=== PATIENT | female | born 1985 | race Two or more races ===

== ENCOUNTER 2020-01-06 11:39 | Emergency (ER) | payer MEDICAID ==
[~2020-01-06] VITALS: Ht 157.5 cm; Wt 44.0 kg
[2020-01-06 13:13] LABS: Urine WBC None Seen /hpf (0 - 5)
[2020-01-06 13:28] LABS: Urine Bacteria FEW /hpf (None Seen); Urine Blood Negative /uL (Negative); Urine Specific Gravity 1.013 (1.001-1.035)
[2020-01-06 13:40] LABS: Basophils # (auto) 0 uL; Basophils % (auto) 0.2 % (0.0-2.0); Eosinophils # (auto) 0 uL; Eosinophils % (auto) 0.3 % (0.0-7.0); Hematocrit 38.1 % (36.0-46.0); Hemoglobin 12.5 g/dL (12.2-16.2); Lymphocytes # (auto) 1.6 uL; Mean Corpuscular Hemoglobin 27.9 pg (28.0-32.0); Mean Corpuscular Hgb Conc. 32.9 g/dL (32.0-36.0); Mean Corpuscular Volume 84.8 fL (80.0-100.0); Monocytes # (auto) 0.5 uL; Neutrophils # (auto) 5.6 uL; Neutrophils % (auto) 72.5 % (37.0-80.0); Nucleated Red Blood Cells % 0.1 %; Platelet Count (auto) 357 10^3/uL (140-450); Red Blood Cells 4.49 10^6/uL (4.0-5.20); Red Cell Distribution Width 14.8 % (11.8-14.3); White Blood Cell 7.7 10^3/uL (4.4-10.8)
[2020-01-06 13:57] LABS: Albumin 4.1 g/dL (3.4-5.0); Calcium 9.1 mg/dL (8.5-10.1); Potassium 3.7 mmol/L (3.5-5.1)
[2020-01-06 14:01] LABS: Bilirubin, Total 0.3 mg/dL (0.2-1.0); Total Protein 8.3 g/dL (6.4-8.2)
[2020-01-06 17:03] VITALS: BP 100/55
== END 2020-01-06 17:06 | disposition home or self-care (01) ==
LOC: ER 11:39
DX: O26.891 Other specified pregnancy related conditions, first trimester (principal); R10.2 Pelvic and perineal pain; Z3A.00 Weeks of gestation of pregnancy not specified
CPT/HCPCS: 36415; 76801; 80053; 81001; 84702; 85025

== ENCOUNTER 2020-01-08 06:21 | Emergency (ER) | payer MEDICAID ==
[~2020-01-08] VITALS: Ht 160 cm; Wt 45.8 kg
[2020-01-08 09:25] LABS: Urine Amorphous Crystal FEW /hpf (None Seen); Urine Bacteria NONE SEEN /hpf (None Seen); Urine Blood Negative /uL (Negative); Urine Mucus FEW (None Seen); Urine Specific Gravity 1.019 (1.001-1.035); Urine WBC <1 /hpf (0 - 5)
[2020-01-08 09:31] LABS: Alcohol, Urine < 3.0 mg/dL (0-5); Amphetamine Screen, Urine NEGATIVE (NEGATIVE); Barbiturate Scree,Urine NEGATIVE (NEGATIVE); Benzodiazephine Screen, Urine NEGATIVE (NEGATIVE); Cannabinoid Screen, Urine NEGATIVE (NEGATIVE); Cocaine Screen, Urine NEGATIVE (NEGATIVE); Opiate Scree,Urine NEGATIVE (NEGATIVE); Phencyclidine Screen, Urine NEGATIVE (NEGATIVE)
[2020-01-08 10:20] VITALS: BP 95/52
== END 2020-01-08 10:30 | disposition home or self-care (01) ==
LOC: ER 06:21
DX: O26.891 Other specified pregnancy related conditions, first trimester (principal); R10.9 Unspecified abdominal pain; Z3A.01 Less than 8 weeks gestation of pregnancy
CPT/HCPCS: 36415; 80307; 81001; 84702

== ENCOUNTER 2020-01-14 19:01 | Emergency (ER) | payer MEDICAID ==
[~2020-01-14] VITALS: Ht 157.5 cm; Wt 44.5 kg
[2020-01-14 21:01] LABS: Urine WBC None Seen /hpf (0 - 5)
[2020-01-14 21:12] LABS: Urine Amorphous Crystal FEW /hpf (None Seen); Urine Bacteria NONE SEEN /hpf (None Seen); Urine Blood Negative /uL (Negative); Urine Specific Gravity 1.022 (1.001-1.035)
[2020-01-14 22:15] LABS: Basophils # (auto) 0 10 ^3/uL (0-0.2); Basophils % (auto) 0.1 % (0.0-2.0); Eosinophils # (auto) 0.1 10 ^3/uL (0-0.8); Eosinophils % (auto) 0.6 % (0.0-7.0); Hematocrit 35.3 % (36.0-46.0); Hemoglobin 11.9 g/dL (12.2-16.2); Lymphocytes # (auto) 2.4 10 ^3/uL (0.4-5.4); Lymphocytes % (auto) 24.6 % (10.0-50.0); Mean Corpuscular Hemoglobin 28.7 pg (28.0-32.0); Mean Corpuscular Hgb Conc. 33.8 g/dL (32.0-36.0); Mean Corpuscular Volume 85.1 fL (80.0-100.0); Monocytes # (auto) 0.7 10 ^3/uL (0-1.3); Monocytes % (auto) 7.5 % (0.0-12.0); Neutrophils # (auto) 6.4 10 ^3/uL (1.6-8.6); Neutrophils % (auto) 67.2 % (37.0-80.0); Platelet Count (auto) 330 10^3/uL (140-450); Red Blood Cells 4.15 10^6/uL (4.0-5.20); Red Cell Distribution Width 15.2 % (11.8-14.3); White Blood Cell 9.6 10^3/uL (4.4-10.8)
[2020-01-14 22:20] LABS: BUN/Creatinine Ratio 11.9; Calcium 8.9 mg/dL (8.5-10.1); Potassium 3.4 mmol/L (3.5-5.1)
[2020-01-14 22:22] LABS: Bilirubin, Total 0.3 mg/dL (0.2-1.0); Total Protein 8.1 g/dL (6.4-8.2)
[2020-01-15 00:19] VITALS: BP 96/64
[2020-01-15] MEDS ORDERED: cefTRIAXone SODIUM 250 MG VL IM ONE (00:45)
[2020-01-15] MEDS ORDERED: AZITHROMYCIN 250 MG TAB PO ONE ×2 (00:45→00:57)
== END 2020-01-15 01:00 | disposition home or self-care (01) ==
LOC: ER 19:01
DX: N76.0 Acute vaginitis (principal)
CPT/HCPCS: 36415; 80053; 81001; 84702; 85025; 96372; 99283; J0696

== ENCOUNTER 2020-01-22 08:21 | Emergency (ER) | payer MEDICAID ==
[~2020-01-22] VITALS: Ht 160 cm; Wt 44.9 kg
[2020-01-22 11:13] VITALS: BP 109/82
== END 2020-01-22 12:30 | disposition home or self-care (01) ==
LOC: ER 08:25
DX: O23.41 Unspecified infection of urinary tract in pregnancy, first trimester (principal); Z3A.08 8 weeks gestation of pregnancy
CPT/HCPCS: 36415; 76801; 81002; 81025; 84702

== ENCOUNTER 2020-02-04 08:10 | Emergency (ER) | payer MEDICAID ==
[~2020-02-04] VITALS: Ht 160 cm; Wt 44.5 kg
[2020-02-04 08:36] VITALS: BP 112/64
== END 2020-02-04 11:42 | disposition home or self-care (01) ==
LOC: ER 08:10
DX: O26.891 Other specified pregnancy related conditions, first trimester (principal); R10.9 Unspecified abdominal pain; R51 Headache; Z3A.10 10 weeks gestation of pregnancy
CPT/HCPCS: 36415; 76801; 84702

== ENCOUNTER 2020-05-01 08:00 | Observation (INO) | payer MEDICAID ==
[2020-05-01] MEDS ORDERED: PREN-96 PO (08:42)
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
== END 2020-05-01 11:05 | disposition home or self-care (01) | DRG 563 ==
LOC: LDRP 08:00
PROVIDERS: ADMIT Specialist; ATTEND Specialist
DX: O60.02 Preterm labor without delivery, second trimester (principal); O99.89 Other specified diseases and conditions complicating pregnancy, childbirth and the puerperium; E86.0 Dehydration; Z3A.22 22 weeks gestation of pregnancy
CPT/HCPCS: 59025; 81002; G0378

== ENCOUNTER 2020-05-08 10:57 | Observation (INO) | payer MEDICAID ==
[~2020-05-08] VITALS: Ht 157.5 cm; Wt 46.7 kg
[~2020-05-08 10:57] MED LIST: PREN-96 PO
[2020-05-08] MEDS ORDERED: ceFAZolin 1GM/50ML 50 ML IV ONE ×2 (13:45→14:10)
[2020-05-08] MEDS ORDERED: BETAMETHASONE ACET (6MG/ML) 5ML VIAL IM ONE (13:45)
[2020-05-08 13:54] LABS: Basophils # (auto) 0 10 ^3/uL (0-0.2); Basophils % (auto) 0.1 % (0.0-2.0); Eosinophils # (auto) 0 10 ^3/uL (0-0.8); Eosinophils % (auto) 0.5 % (0.0-7.0); Hematocrit 33.6 % (36.0-46.0); Hemoglobin 11.3 g/dL (12.2-16.2); Lymphocytes # (auto) 1.5 10 ^3/uL (0.4-5.4); Lymphocytes % (auto) 17.8 % (10.0-50.0); Mean Corpuscular Hemoglobin 29.7 pg (28.0-32.0); Mean Corpuscular Hgb Conc. 33.7 g/dL (32.0-36.0); Monocytes # (auto) 0.4 10 ^3/uL (0-1.3); Monocytes % (auto) 4.4 % (0.0-12.0); Neutrophils # (auto) 6.6 10 ^3/uL (1.6-8.6); Neutrophils % (auto) 77.2 % (37.0-80.0); Platelet Count (auto) 292 10^3/uL (140-450); Red Blood Cells 3.81 10^6/uL (4.0-5.20); Red Cell Distribution Width 13.8 % (11.8-14.3); White Blood Cell 8.5 10^3/uL (4.4-10.8)
[2020-05-08 14:09] LABS: INR 0.94 (0.9-1.15); Partial Thromboplastin Time 26.6 sec (23.64-32.05)
[2020-05-08] MEDS ORDERED: BETAMETHASONE ACET (6MG/ML) 5ML VIAL ONE (14:10)
[2020-05-08 14:29] LABS: Albumin 2.8 g/dL (3.4-5.0); Calcium 8.5 mg/dL (8.5-10.1); Potassium 4.1 mmol/L (3.5-5.1)
[2020-05-08 14:38] LABS: BUN/Creatinine Ratio 5.3; Bilirubin, Total 0.4 mg/dL (0.2-1.0); Total Protein 6.5 g/dL (6.4-8.2)
[2020-05-08 15:04] LABS: Amphetamine Screen, Urine NEGATIVE (NEGATIVE); Barbiturate Scree,Urine NEGATIVE (NEGATIVE); Benzodiazephine Screen, Urine NEGATIVE (NEGATIVE); Cannabinoid Screen, Urine NEGATIVE (NEGATIVE); Cocaine Screen, Urine NEGATIVE (NEGATIVE); Opiate Scree,Urine NEGATIVE (NEGATIVE); Phencyclidine Screen, Urine NEGATIVE (NEGATIVE)
[2020-05-08] MEDS ORDERED: LACTATED RINGER'S 1,000 ML IV SCH (15:08)
[2020-05-08 15:09] LABS: Urine Amorphous Crystal FEW /hpf (None Seen); Urine Bacteria NONE SEEN /hpf (None Seen); Urine Blood Negative /uL (Negative); Urine Mucus FEW (None Seen); Urine WBC <1 /hpf (0 - 5)
[2020-05-08] MEDS ORDERED: MAGNESIUM SULFATE 40MG/ML 1,000 ML IV SCH (15:25)
[2020-05-08] MEDS ORDERED: MAGNESIUM SULFATE 100 ML IV ONE (15:30)
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
== END 2020-05-08 17:28 | disposition short-term general hospital (02) | DRG 563 ==
LOC: LDRP 10:57
PROVIDERS: ADMIT Specialist; ATTEND Specialist
DX: O60.03 Preterm labor without delivery, third trimester (principal); O42.912 Preterm premature rupture of membranes, unspecified as to length of time between rupture and onset of labor, second trimester; Z3A.23 23 weeks gestation of pregnancy
CPT/HCPCS: 36415; 59025; 76805; 76815; 80053; 80307; 81001; 81002; 84112; 85025; 85610; 85730; 96365; 96366; 96367; 96372; G0378; J0690; J0702; J3475; Q0114

== ENCOUNTER 2020-05-15 17:43 | Observation (INO) | payer MEDICAID ==
[~2020-05-15] VITALS: Ht 160 cm; Wt 46.7 kg
== END 2020-05-15 19:40 | disposition home or self-care (01) | DRG 566 ==
LOC: LDRP 17:43
PROVIDERS: ADMIT Specialist; ATTEND Specialist
DX: O26.892 Other specified pregnancy related conditions, second trimester (principal); Z3A.24 24 weeks gestation of pregnancy; V49.9XXA Car occupant (driver) (passenger) injured in unspecified traffic accident, initial encounter; Y93.89 Activity, other specified; Y92.89 Other specified places as the place of occurrence of the external cause; Y99.8 Other external cause status
CPT/HCPCS: 59025; 81002; G0378

== ENCOUNTER 2020-05-16 23:00 | Observation (INO) | payer MEDICAID ==
[2020-05-17 02:23] LABS: Urine WBC None Seen /hpf (0 - 5)
[2020-05-17 02:40] LABS: Urine Bacteria NONE SEEN /hpf (None Seen); Urine Blood Negative /uL (Negative); Urine Specific Gravity 1.002 (1.001-1.035)
[2020-05-17 02:52] LABS: Alcohol, Urine < 3.0 mg/dL (0-10); Amphetamine Screen, Urine NEGATIVE (NEGATIVE); Barbiturate Scree,Urine NEGATIVE (NEGATIVE); Benzodiazephine Screen, Urine NEGATIVE (NEGATIVE); Cannabinoid Screen, Urine NEGATIVE (NEGATIVE); Cocaine Screen, Urine NEGATIVE (NEGATIVE); Opiate Scree,Urine NEGATIVE (NEGATIVE); Phencyclidine Screen, Urine NEGATIVE (NEGATIVE)
== END 2020-05-17 02:16 | disposition home or self-care (01) | DRG 566 ==
LOC: LDRP 23:00 → UNDOADMOB 23:00
PROVIDERS: ADMIT Specialist; ATTEND Specialist
DX: O26.892 Other specified pregnancy related conditions, second trimester (principal); Z3A.24 24 weeks gestation of pregnancy
CPT/HCPCS: 59025; 80307; 81001; 81002; G0378

== ENCOUNTER 2020-05-20 16:35 | Observation (INO) | payer MEDICAID ==
[~2020-05-20] VITALS: Ht 160 cm; Wt 46.7 kg
[2020-05-20 17:28] LABS: Alcohol, Urine < 3.0 mg/dL (0-10); Amphetamine Screen, Urine NEGATIVE (NEGATIVE); Barbiturate Scree,Urine NEGATIVE (NEGATIVE); Benzodiazephine Screen, Urine NEGATIVE (NEGATIVE); Cannabinoid Screen, Urine NEGATIVE (NEGATIVE); Cocaine Screen, Urine NEGATIVE (NEGATIVE); Opiate Scree,Urine NEGATIVE (NEGATIVE); Phencyclidine Screen, Urine NEGATIVE (NEGATIVE)
[2020-05-20] MEDS ORDERED: TERBUTALINE SULFATE 1 MG/ML 1ML VIAL SC SCH (18:15)
[2020-05-20] MEDS ORDERED: LACTATED RINGER'S 1,000 ML IV ONE (18:15)
--- NOTE | 2020-05-20 18:45 | NUR ---
Patient denies current thoughts of suicide. Addendum: 05/20/20 at 2000 by SABAS HUTTON RN Amended: Links added.
== END 2020-05-20 19:38 | disposition home or self-care (01) | DRG 566 ==
LOC: LDRP 16:35
PROVIDERS: ADMIT Obstetrics & Gynecology; ATTEND Obstetrics & Gynecology
DX: O62.9 Abnormality of forces of labor, unspecified (principal); O36.8120 Decreased fetal movements, second trimester, not applicable or unspecified; Z3A.25 25 weeks gestation of pregnancy
CPT/HCPCS: 59025; 80307; 81002; 96360; 96372; G0378; J3105

== ENCOUNTER 2020-06-20 07:33 | Observation (INO) | payer MEDICAID | END 2020-06-20 08:37 | disposition home or self-care (01) | DRG 566 | LOC: LDRP 07:33 | PROVIDERS: ADMIT Specialist; ATTEND Specialist | DX: O36.8130 Decreased fetal movements, third trimester, not applicable or unspecified (principal); O26.853 Spotting complicating pregnancy, third trimester; Z3A.29 29 weeks gestation of pregnancy | CPT/HCPCS: 59025; 81002; G0378 ==

== ENCOUNTER 2020-06-23 16:40 | Observation (INO) | payer MEDICAID | END 2020-06-23 19:05 | disposition home or self-care (01) | DRG 566 | LOC: LDRP 16:40 | PROVIDERS: ADMIT Specialist; ATTEND Specialist | DX: O36.8130 Decreased fetal movements, third trimester, not applicable or unspecified (principal); O26.893 Other specified pregnancy related conditions, third trimester; R10.30 Lower abdominal pain, unspecified; O99.343 Other mental disorders complicating pregnancy, third trimester; F32.9 Major depressive disorder, single episode, unspecified; Z3A.30 30 weeks gestation of pregnancy | CPT/HCPCS: 59025; 76817; 76818; 81002; G0378 ==

== ENCOUNTER 2020-06-25 10:39 | Observation (INO) | payer MEDICAID | END 2020-06-25 13:18 | disposition home or self-care (01) | LOC: LDRP 10:39 | PROVIDERS: ADMIT Specialist; ATTEND Specialist | DX: Z03.818 Encounter for observation for suspected exposure to other biological agents ruled out (principal); O26.893 Other specified pregnancy related conditions, third trimester; R10.30 Lower abdominal pain, unspecified; O36.8330 Maternal care for abnormalities of the fetal heart rate or rhythm, third trimester, not applicable or unspecified; O99.343 Other mental disorders complicating pregnancy, third trimester; F32.9 Major depressive disorder, single episode, unspecified; Z87.891 Personal history of nicotine dependence; Z3A.30 30 weeks gestation of pregnancy | CPT/HCPCS: 36415; 59025; 76815; 81002; 87426; G0378 ==

== ENCOUNTER 2020-07-04 12:27 | Observation (INO) | payer MEDICAID | END 2020-07-04 13:35 | disposition home or self-care (01) | LOC: LDRP 12:27 | PROVIDERS: ADMIT Obstetrics & Gynecology; ATTEND Obstetrics & Gynecology | DX: O36.8130 Decreased fetal movements, third trimester, not applicable or unspecified (principal); Z3A.31 31 weeks gestation of pregnancy | CPT/HCPCS: 59025; 81002; G0378 ==

== ENCOUNTER 2020-07-08 03:32 | Observation (INO) | payer MEDICAID | END 2020-07-08 04:18 | disposition home or self-care (01) | LOC: LDRP 03:32 | PROVIDERS: ADMIT Specialist; ATTEND Specialist | DX: O36.8130 Decreased fetal movements, third trimester, not applicable or unspecified (principal); Z3A.32 32 weeks gestation of pregnancy | CPT/HCPCS: 59025; 81002; G0378 ==

== ENCOUNTER 2020-07-09 11:22 | Emergency (ER) | payer MEDICAID ==
[~2020-07-09] VITALS: Ht 160 cm; Wt 51.7 kg
[2020-07-09] MEDS ORDERED: BACITRACIN TOP OINT 1 UD PKG TOP ONE (12:00)
[2020-07-09 15:06] LABS: Acetaminophen < 2.0 ug/mL (10-30); Salicylate < 1.7 mg/dL (2.8-20.0)
[2020-07-09 15:07] LABS: Alcohol, Urine < 3.0 mg/dL (0-10); Amphetamine Screen, Urine NEGATIVE (NEGATIVE); Barbiturate Scree,Urine NEGATIVE (NEGATIVE); Benzodiazephine Screen, Urine NEGATIVE (NEGATIVE); Cannabinoid Screen, Urine NEGATIVE (NEGATIVE); Cocaine Screen, Urine NEGATIVE (NEGATIVE); Opiate Scree,Urine NEGATIVE (NEGATIVE); Phencyclidine Screen, Urine NEGATIVE (NEGATIVE)
[2020-07-09] MEDS ORDERED: PENICILLIN G POT 5MIL/D5 50ML 50 ML IV ONE (22:30)
[2020-07-10] MEDS ORDERED: PENICILLIN G POTASSIUM 2,500,000 UNITS in D5W 5% 50 ML IV SCH (02:30)
[2020-07-10] MEDS ORDERED: BACITRACIN TOP OINT 1 UD PKG TOP ONE (15:37)
[2020-07-10 17:00] LABS: Urine Bacteria FEW /hpf (None Seen); Urine Blood Negative /uL (Negative); Urine Mucus FEW (None Seen); Urine WBC 98 /hpf (0 - 5)
[2020-07-10] MEDS ORDERED: NITROFURANTOIN 100 mg CAP PO ONE (18:00)
[2020-07-11] MEDS ORDERED: BACITRACIN TOP OINT 1 UD PKG TOP ONE (08:00)
[2020-07-12] MEDS ORDERED: BACITRACIN TOP OINT 1 UD PKG TOP ONE (04:27)
[2020-07-13] MEDS ORDERED: HALOPERIDOL LACTATE 5 MG/ML INJ VIAL IM PRN (15:30)
[2020-07-13] MEDS ORDERED: LORazepam 2MG/ML-1ML VIAL IM PRN (15:30)
[2020-07-13] MEDS ORDERED: diphenhdrAMINE HCL 25 MG CAP PO ONE (22:13)
[2020-07-13] MEDS ORDERED: lamoTRIgine 25 MG TAB ONE (22:14)
[2020-07-13] MEDS: diphenhdrAMINE HCL 25 MG CAP PO SCH (22:16)
[2020-07-13] MEDS: lamoTRIgine 25 MG TAB PO SCH (22:16)
[2020-07-14] MEDS ORDERED: diphenhdrAMINE HCL 25 MG CAP PO ONE (07:00)
[2020-07-14] MEDS: diphenhdrAMINE HCL 25 MG CAP PO SCH ×3 (07:04→22:55)
[2020-07-14] MEDS ORDERED: VENLAFAXINE HCL 37.5mg XR cap PO ONE (10:20)
[2020-07-14] MEDS: VENLAFAXINE HCL 37.5mg XR cap PO SCH (10:24)
[2020-07-14] MEDS ORDERED: CIPROFLOXACIN HCL 500 MG TAB PO ONE (16:11)
[2020-07-14] MEDS ORDERED: CEPHALEXIN 250 MG CAP PO ONE ×2 (16:13→16:30)
[2020-07-14] MEDS: CEPHALEXIN 250 MG CAP PO SCH (17:00)
[2020-07-14] MEDS ORDERED: BETAMETHASONE ACET (6MG/ML) 5ML VIAL IM ONE (18:15)
[2020-07-14] MEDS: TERBUTALINE SULFATE 1 MG/ML 1ML VIAL SC SCH ×3 (18:35→20:05)
[2020-07-14] MEDS ORDERED: LACTATED RINGER'S 1,000 ML IV ONE (19:30)
[2020-07-14] MEDS ORDERED: NIFEdipine 10 MG CAP PO ONE (21:15)
[2020-07-14 22:37] LABS: Urine WBC None Seen /hpf (0 - 5)
[2020-07-14] MEDS: lamoTRIgine 25 MG TAB PO SCH (22:55)
[2020-07-14 23:00] LABS: Urine Bacteria FEW /hpf (None Seen); Urine Blood Negative /uL (Negative); Urine Mucus FEW (None Seen); Urine Specific Gravity 1.021 (1.001-1.035)
[2020-07-15] MEDS: NIFEdipine 10 MG CAP PO SCH ×6 (02:46→22:40)
[2020-07-15] MEDS: diphenhdrAMINE HCL 25 MG CAP PO SCH ×3 (06:11→22:40)
[2020-07-15] MEDS: CEPHALEXIN 250 MG CAP PO SCH (10:00)
[2020-07-15] MEDS ORDERED: CEPHALEXIN 250 MG CAP PO SCH (10:00)
[2020-07-15] MEDS: VENLAFAXINE HCL 37.5mg XR cap PO SCH (10:00)
[2020-07-15] MEDS: BETAMETHASONE ACET (6MG/ML) 5ML VIAL IM ONE (22:34)
[2020-07-15] MEDS: lamoTRIgine 25 MG TAB PO SCH (22:40)
[2020-07-16] MEDS: BETAMETHASONE ACET (6MG/ML) 5ML VIAL IM ONE (01:15)
[2020-07-16] MEDS: NIFEdipine 10 MG CAP PO SCH ×8 (02:27→22:45)
[2020-07-16] MEDS: diphenhdrAMINE HCL 25 MG CAP PO SCH ×3 (06:19→22:41)
[2020-07-16] MEDS: CEPHALEXIN 250 MG CAP PO SCH (10:40)
[2020-07-16] MEDS: VENLAFAXINE HCL 37.5mg XR cap PO SCH (10:40)
[2020-07-16] MEDS: lamoTRIgine 25 MG TAB PO SCH (22:41)
[2020-07-17] MEDS: diphenhdrAMINE HCL 25 MG CAP PO SCH ×3 (05:03→23:36)
[2020-07-17] MEDS: NIFEdipine 10 MG CAP PO SCH ×5 (05:04→23:36)
[2020-07-17] MEDS: VENLAFAXINE HCL 37.5mg XR cap PO SCH (10:20)
[2020-07-17] MEDS: CEPHALEXIN 250 MG CAP PO SCH (10:20)
[2020-07-17] MEDS: lamoTRIgine 25 MG TAB PO SCH (23:36)
[2020-07-18] MEDS: NIFEdipine 10 MG CAP PO SCH ×6 (02:06→22:00)
[2020-07-18] MEDS: diphenhdrAMINE HCL 25 MG CAP PO SCH ×3 (06:09→22:46)
[2020-07-18] MEDS: CEPHALEXIN 250 MG CAP PO SCH (11:43)
[2020-07-18] MEDS: VENLAFAXINE HCL 37.5mg XR cap PO SCH (11:43)
[2020-07-18] MEDS: lamoTRIgine 25 MG TAB PO SCH (22:46)
[2020-07-19] MEDS: NIFEdipine 10 MG CAP PO SCH ×4 (02:00→14:00)
[2020-07-19] MEDS: diphenhdrAMINE HCL 25 MG CAP PO SCH ×3 (06:00→23:11)
[2020-07-19] MEDS: VENLAFAXINE HCL 37.5mg XR cap PO SCH (11:06)
[2020-07-19] MEDS: CEPHALEXIN 250 MG CAP PO SCH (11:06)
[2020-07-19] MEDS: lamoTRIgine 25 MG TAB PO SCH (23:11)
[2020-07-20] MEDS ORDERED: LACTATED RINGER'S 1,000 ML IV ONE (03:00)
[2020-07-20] MEDS: diphenhdrAMINE HCL 25 MG CAP PO SCH (06:18)
[2020-07-20 08:34] VITALS: BP 104/54
== END 2020-07-20 09:01 | disposition short-term general hospital (02) ==
LOC: EDBD 11:22 → EDUNIT# 11:22 → ER 11:22
DX: O9A.213 Injury, poisoning and certain other consequences of external causes complicating pregnancy, third trimester (principal); S61.512A Laceration without foreign body of left wrist, initial encounter; O99.343 Other mental disorders complicating pregnancy, third trimester; R45.851 Suicidal ideations; F41.9 Anxiety disorder, unspecified; F31.9 Bipolar disorder, unspecified; Z3A.33 33 weeks gestation of pregnancy; Z20.828 Contact with and (suspected) exposure to other viral communicable diseases; X78.8XXA Intentional self-harm by other sharp object, initial encounter; Y93.89 Activity, other specified; Y92.89 Other specified places as the place of occurrence of the external cause; Y99.8 Other external cause status
CPT/HCPCS: 36415; 76815; 76817; 76818; 80307; 80320; 80329; 81001; 87426; 96360; 96361; 96372; 99285; J0702; J2540

== ENCOUNTER 2020-08-08 16:45 | Inpatient (IN) | payer MEDICAID ==
[~2020-08-08] VITALS: Ht 160 cm; Wt 51.7 kg
[2020-08-08] MEDS ORDERED: FERR-20 PO (17:32)
[2020-08-08] MEDS ORDERED: SERT100T PO (17:32)
[2020-08-08] MEDS ORDERED: TRAZ300T16 PO (17:32)
[2020-08-08] MEDS ORDERED: HAL5T PO (17:32)
[2020-08-08] MEDS ORDERED: DIPH25CA66 PO (17:32)
[2020-08-08] MEDS ORDERED: DERMOPLAST 60ML BOTTLE TOP PRN (19:00)
[2020-08-08] MEDS ORDERED: PHISODERM TOP SOLN 240ML BTL TOP PRN (19:00)
[2020-08-08] MEDS ORDERED: LACTATED RINGER'S 1,000 ML IV SCH (19:00)
[2020-08-08] MEDS ORDERED: PENICILLIN G POT 5MIL/D5 50ML 50 ML IV ONE (19:00)
[2020-08-08] MEDS ORDERED: WITCH HAZEL-GLYCERIN PAD TOP PRN (19:00)
[2020-08-08] MEDS: LACTATED RINGER'S 1,000 ML IV SCH (19:00)
[2020-08-08] MEDS ORDERED: NALBUPHINE HCL 10 MG/1ml INJECTION IM PRN (19:00)
[2020-08-08] MEDS ORDERED: LIDOCAINE 2%HCL (LOCAL ANESTH.) INJ 20ML MDV IJ ONE (19:00)
[2020-08-08 19:51] LABS: Basophils # (auto) 0 10 ^3/uL (0-0.2); Basophils % (auto) 0.2 % (0.0-2.0); Eosinophils # (auto) 0 10 ^3/uL (0-0.8); Eosinophils % (auto) 0.4 % (0.0-7.0); Hematocrit 36.9 % (36.0-46.0); Hemoglobin 12.3 g/dL (12.2-16.2); Lymphocytes # (auto) 1.7 10 ^3/uL (0.4-5.4); Lymphocytes % (auto) 14.7 % (10.0-50.0); Mean Corpuscular Hemoglobin 29.7 pg (28.0-32.0); Mean Corpuscular Hgb Conc. 33.4 g/dL (32.0-36.0); Mean Corpuscular Volume 88.9 fL (80.0-100.0); Monocytes # (auto) 0.7 10 ^3/uL (0-1.3); Monocytes % (auto) 5.7 % (0.0-12.0); Neutrophils # (auto) 9.2 10 ^3/uL (1.6-8.6); Nucleated Red Blood Cells % 0.1 %; Platelet Count (auto) 229 10^3/uL (140-450); Red Blood Cells 4.15 10^6/uL (4.0-5.20); Red Cell Distribution Width 14.3 % (11.8-14.3); White Blood Cell 11.7 10^3/uL (4.4-10.8)
[2020-08-08 20:08] LABS: Albumin 2.9 g/dL (3.4-5.0); Calcium 8.7 mg/dL (8.5-10.1); Potassium 3.7 mmol/L (3.5-5.1)
[2020-08-08 20:11] LABS: BUN/Creatinine Ratio 15.4; Bilirubin, Total 0.2 mg/dL (0.2-1.0); Total Protein 6.9 g/dL (6.4-8.2)
[2020-08-08] MEDS ORDERED: LIDOCAINE 1% (LOCAL ANESTH.) PF 5ml SDV IJ ONE (20:45)
[2020-08-08] MEDS ORDERED: LACT. RINGERS/OXYTOCIN 20UNITS 1,000 ML IV ONE (20:45)
[2020-08-08] MEDS ORDERED: LACT. RINGERS/OXYTOCIN 20UNITS 1,000 ML IV SCH (20:45)
[2020-08-08 20:58] LABS: Amphetamine Screen, Urine NEGATIVE (NEGATIVE); Barbiturate Scree,Urine NEGATIVE (NEGATIVE); Benzodiazephine Screen, Urine NEGATIVE (NEGATIVE); Cannabinoid Screen, Urine NEGATIVE (NEGATIVE); Cocaine Screen, Urine NEGATIVE (NEGATIVE); Opiate Scree,Urine NEGATIVE (NEGATIVE); Phencyclidine Screen, Urine NEGATIVE (NEGATIVE)
[2020-08-08 21:08] LABS: Urine Bacteria FEW /hpf (None Seen); Urine Blood 3+ /uL (Negative); Urine Mucus FEW (None Seen); Urine Specific Gravity 1.012 (1.001-1.035); Urine WBC 12 /hpf (0 - 5)
[2020-08-08 21:13] LABS: INR 0.88 (0.9-1.15); Partial Thromboplastin Time 27.6 sec (23.0-31.2)
[2020-08-08] MEDS ORDERED: LIDOCAINE 2%HCL (LOCAL ANESTH.) INJ 20ML MDV ID ONE (21:30)
[2020-08-08] MEDS ORDERED: traZODone HCL 50 MG TAB PO PRN (22:15)
[2020-08-08] MEDS ORDERED: diphenhdrAMINE HCL 25 MG CAP PO PRN (22:15)
--- NOTE | 2020-08-08 23:30 | NUR ---
CPS report done, reference # [id number], CPS worker Faustina Claire, Union Organizer Sharda Merlos. Social Service consult placed.
[2020-08-08 23:36] VITALS: BP 111/59
[2020-08-09] MEDS ORDERED: PENICILLIN G POTASSIUM 2,500,000 UNITS in D5W 5% 50 ML IV SCH ×2
[2020-08-09] MEDS: traZODone HCL 50 MG TAB PO PRN ×2 (02:26→19:50)
[2020-08-09 03:00] VITALS: BP 102/55
[2020-08-09] MEDS: LACTATED RINGER'S 1,000 ML IV SCH (04:45)
[2020-08-09 06:50] VITALS: BP 115/62
--- NOTE | 2020-08-09 07:00 | NUR ---
Infant Feeding Education: Patient is currently bottle feeding per her request, and d/t possible drug interactions with patient medications; Formula provided and instruction on formula preparation from the New Beginning booklet reviewed with patient.
--- NOTE | 2020-08-09 08:00 | NUR ---
CFS visit: Ansley Flynn from [facility] on unit and has interviewed patient; Ansley states that she will return later today with a warrant to remove infant from patient custody; Ansley states that the infant may remain with mother for the time being.
[2020-08-09] MEDS: HALOPERIDOL 5 MG TAB PO SCH ×2 (09:48→19:49)
[2020-08-09] MEDS: SERTRALINE HCL 50 MG TAB PO SCH (09:49)
[2020-08-09] MEDS ORDERED: HALOPERIDOL 5 MG TAB PO SCH (10:00)
--- NOTE | 2020-08-09 10:10 | NUR ---
Dr Sherwood present in room to assess ; Order received to prepare for transfer to higher level of care due to tremors; Dr Sherwood speaks informs patient; all patient questions answered at this time.
[2020-08-09 11:00] VITALS: BP 96/51
[2020-08-09 15:30] VITALS: BP 107/58
[2020-08-09] MEDS ORDERED: IBUPROFEN 600 MG TAB PO PRN (16:00)
[2020-08-09 19:00] VITALS: BP 109/61
--- NOTE | 2020-08-09 19:40 | NUR ---
Pt c/o feeling anxious and request to have pm meds early. Haldol 5 mg po and Trazodone 100 mg po given for anxiety.
--- NOTE | 2020-08-09 22:10 | NUR ---
CPS worker Ansley Flynn called inquiring about when pt will be discharged from hospital because she needs to serve pt a warrant. States she will be in to see pt early in the morning. If anyone needs to reach her, the phone number is [phone].
[2020-08-09 22:54] VITALS: BP 99/56
--- NOTE | 2020-08-10 | NUR ---
CPS worker Ansley Flynn here with deputy probation officer to issue a warrant to patient. I accompanied them to the room to talk to patient and issue the warrant.
[2020-08-10 02:49] VITALS: BP 90/53
--- NOTE | 2020-08-10 06:58 | NUR ---
Dr Dick on unit. Informed of tele psych results. Printed complete report. Verbalized understanding. Stated to consult psychologist to have patient evaluated. Informed weigh and charge workerTERESO Lisa of tele psych report. Verbalized understanding.
[2020-08-10 07:00] VITALS: BP 108/58
--- NOTE | 2020-08-10 08:08 | NUR ---
Called house slot shift supervisor, Mary. Informed of Dr Dick's request for an inhouse consult with a psychologist. Mary stated we do not have a inhouse psychologist and the tele psych consult takes the place of that consult. SBAR given regarding patient's status, history, and tele psych recommendations for transfer and treatment, if patient refuses then a 5150 hold needs to be placed. Informed patient does not want to have treatment at this time. Patient states "she has a lot that she needs to do" before going for treatment. Mary verbalized understanding. Stated she will find the resource to place patient on a hold.
[2020-08-10] MEDS: SERTRALINE HCL 50 MG TAB PO SCH (09:43)
[2020-08-10] MEDS: HALOPERIDOL 5 MG TAB PO SCH ×2 (09:43→21:48)
--- NOTE | 2020-08-10 09:45 | NUR ---
When educating patient regarding her medications to be administered at hospital, patient asked if she could take her vitamins that she brought with her. Patient asked if she has any medications at the hospital. patient stated she brought all of her medications from home. Medications found in personal belongings were reviewed with patient, counted and taken to the pharmacy to be held until discharge.
--- NOTE | 2020-08-10 11:00 | NUR ---
Paged Mary lira security field supervisor regarding status of 5150 hold.
[2020-08-10 11:10] VITALS: BP 95/50
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
[2020-08-10 15:00] VITALS: BP 120/61
--- NOTE | 2020-08-10 15:05 | NUR ---
Repaged Mary lira supervisor solder making for update on 5150 status update.
--- NOTE | 2020-08-10 15:55 | NUR ---
Repaged Azalia lira supervisor hydrochloric area for update on 5150 hold status. No answer on phone. Unable to leave a message. Paged anode worker masonry teacher Itzel Keen regarding new social service consult regarding 5150.
--- NOTE | 2020-08-10 15:59 | NUR ---
Itzel fuentes, clinical social work aide returned call. SBAR given. Stated she is aware of patient's status, informed of tele psych orders. Verbalized understanding. Stated she will see patient tomorrow.
--- NOTE | 2020-08-10 17:00 | NUR ---
Called House Sup, no answer, then paged House Sup.
[2020-08-10 18:30] VITALS: BP 102/57
--- NOTE | 2020-08-10 19:00 | NUR ---
Sewing Machine Bobbin Winder, Deborah, given report on PT. refusal of voluntary entry to inpatient Psych. facility and requirement for 5150 as recommended by Zamzam Gongora MD. Deborah will call this RN with a bed assignment to Med/Surg tele and pursuit of 5150.
--- NOTE | 2020-08-10 20:45 | NUR ---
5150 written by Deborah Porter RN and placed in chart.
--- NOTE | 2020-08-10 22:00 | NUR ---
Transfer order obtained 5150 HOLD 270A with Sitter Discharge instructions given as ordered. Pt encouraged to follow up with OPEN HEARTH WORKER as instructed. All questions and concerns addressed. Patient verbalized understanding. Medication reconciliation completed and copy given to patient. Patient stable at this time fundus 2 below U firm with scant bleeding 97.6 1/10 pain, 109/60 HR76 97%
[2020-08-10 22:08] VITALS: BP 103/70
--- NOTE | 2020-08-10 22:10 | NUR ---
Patient transferred to the unit at 2210. Report received from Delmar RIDER. Patient alert and oriented x4, no signs or symptoms of pain or distress. Patient safety measures in place bed in lowest position, side rails up x2, and call light within reach, patient sitter in room. Will continue to monitor patient every hour and as needed.
--- NOTE | 2020-08-10 22:10 | NUR ---
LDRP patient trans to floor ROOM 270a WITH RN DONTAE FELIPE given on SIERRANAM transfered to 270A via wheelchair. NO IV at this time. All POM patient medications and personal belongings transfered with patient to receiving floor RN.
--- NOTE | 2020-08-10 23:00 | NUR ---
FOB Visit for 30 min brought by L&D Charge nurse
--- NOTE | 2020-08-10 23:30 | NUR ---
FOB Visitation ended, brought by L&D Charge Nurse
--- NOTE | 2020-08-11 00:10 | NUR ---
FOB requests to visit [facility]. This RN speaks with [facility] NICU nurse who gives the following instructions: 1. FOB must call Social NehaCharge Manager, prior to visiting [facility]. 2. FOB may call NICU for updates at will. 3. NICU Visiting Hours [id number] once FOB cleared for visitation by [facility] Charge Manager. Above verbal and written explanation/information given to FOB per [place] Speaking Uniform Attendant. FOB verbalizes understanding and agrees to comply.
--- NOTE | 2020-08-11 05:10 | NUR ---
Patient alert and oriented x4. Patient arrived to unit without IV. Patient refused IV, educated patient on risk and benefits, patient verbalized understanding. Patient refused.
[2020-08-11 06:12] VITALS: BP 110/69
[2020-08-11 09:00] VITALS: BP 107/73
[2020-08-11] MEDS: HALOPERIDOL 5 MG TAB PO SCH (09:56)
[2020-08-11] MEDS: SERTRALINE HCL 50 MG TAB PO SCH (09:56)
--- NOTE | 2020-08-11 11:15 | NUR ---
SPOKE TO MD BURKETT VIA TELEPHONE INFORMED PATIENT WANTS TO LEAVE AMA, PATIENT EDUCATED ON RISKS OF LEAVING PATIENT VERBALIZED UNDERSTANDING. PATIENT STILL WISHES TO LEAVE. MD INFORMED WILL CONTINUE TO MONITOR
--- NOTE | 2020-08-11 12:55 | NUR ---
AMA PATIENT LEFT AMA PATIENT EDUCATED ON IMPORTANCE OF MEDICAL CARE, PATIENT VERBALIZED UNDERSTANDING, PATIENT REFUSED ALL CARE. DID NOT HAVE A PERIPHERAL IV LINE. PATIENT DENIED ALL SOB AND DISTRESS AT THIS TIME, PATIENT STATED "I DONT WANT TO BE HERE I HAVE THINGS I NEED TO DO". PATIENT FUNDUS FIRM WITH MINIMAL SCANT LOCHIA BROWNISH RED IN COLOR. MD INFORMED [facility] DEPARTMENT NOTIFIED SPOKE TO TRINH. CHARGE NOTIFIED.
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
== END 2020-08-11 13:00 | disposition left against medical advice (07) | DRG 560 ==
LOC: LDRP 16:45 → OBSVTOIN 18:52 → LDRP 19:11 → WEST WING 08-10 22:08
PROVIDERS: ADMIT Specialist; ATTEND Specialist
PROC: 10E0XZZ Delivery of Products of Conception, External Approach (ICD-10-PCS; principal; 2020-08-08)
PROC: 10907ZC Drainage of Amniotic Fluid, Therapeutic from Products of Conception, Via Natural or Artificial Opening (ICD-10-PCS; 2020-08-08)
DX: O69.81X0 Labor and delivery complicated by cord around neck, without compression, not applicable or unspecified (principal); Z3A.37 37 weeks gestation of pregnancy; O77.0 Labor and delivery complicated by meconium in amniotic fluid; Z37.0 Single live birth; O99.345 Other mental disorders complicating the puerperium; F53.0 Postpartum depression; Z20.828 Contact with and (suspected) exposure to other viral communicable diseases
CPT/HCPCS: 36415; 59025; 59409; 80053; 80307; 81001; 81002; 84112; 85025; 85384; 85610; 85730; 86592; 86850; 86900; 86901; 87086; 87426; 96360; 96365; G0378; J2540; J2590; J7060